=== PATIENT | female | born 1940 | race Caucasian/White ===

== ENCOUNTER 2016-12-30 12:00 | Outpatient (CLI) | payer MEDICARE, BC | END 2016-12-30 23:59 | disposition home health service (06) | LOC: WOU 12:00 | PROVIDERS: ATTEND Surgery | DX: T81.89XA Other complications of procedures, not elsewhere classified, initial encounter (principal); M86.661 Other chronic osteomyelitis, right tibia and fibula; S82.301S Unspecified fracture of lower end of right tibia, sequela; S82.831S Other fracture of upper and lower end of right fibula, sequela; X58.XXXS Exposure to other specified factors, sequela; L03.115 Cellulitis of right lower limb; R73.03 Prediabetes; I10 Essential (primary) hypertension | CPT/HCPCS: 11044; A6402; A6407 ==

== ENCOUNTER 2017-01-04 11:00 | Outpatient (CLI) | payer MEDICARE, BC | END 2017-01-04 23:59 | disposition home or self-care (01) | LOC: WOU 11:00 | PROVIDERS: ATTEND Surgery | DX: S81.801A Unspecified open wound, right lower leg, initial encounter (principal); B96.89 Other specified bacterial agents as the cause of diseases classified elsewhere; X58.XXXA Exposure to other specified factors, initial encounter; Y92.89 Other specified places as the place of occurrence of the external cause; I70.201 Unspecified atherosclerosis of native arteries of extremities, right leg; Z86.718 Personal history of other venous thrombosis and embolism | CPT/HCPCS: 93925-TC; 93971-TC ==

== ENCOUNTER 2017-01-05 13:30 | Outpatient (CLI) | payer MEDICARE, BC | END 2017-01-05 23:59 | disposition home health service (06) | LOC: WOU 13:30 | PROVIDERS: ATTEND Specialist | DX: T81.31XD Disruption of external operation (surgical) wound, not elsewhere classified, subsequent encounter (principal); L03.115 Cellulitis of right lower limb; I10 Essential (primary) hypertension; M86.371 Chronic multifocal osteomyelitis, right ankle and foot; S82.201S Unspecified fracture of shaft of right tibia, sequela; S92.401 Displaced unspecified fracture of right great toe; X58.XXXS Exposure to other specified factors, sequela; R73.03 Prediabetes; T81.89XD Other complications of procedures, not elsewhere classified, subsequent encounter; Z88.2 Allergy status to sulfonamides | CPT/HCPCS: A6402; A6407; G0463 ==

== ENCOUNTER 2017-01-06 13:29 | Outpatient (CLI) | payer MEDICARE, BC | END 2017-01-06 23:59 | disposition home health service (06) | LOC: WOU 13:29 | PROVIDERS: ATTEND Surgery | DX: M86.371 Chronic multifocal osteomyelitis, right ankle and foot (principal); S82.201S Unspecified fracture of shaft of right tibia, sequela; S82.401S Unspecified fracture of shaft of right fibula, sequela; X58.XXXS Exposure to other specified factors, sequela; I10 Essential (primary) hypertension; R73.03 Prediabetes; T81.89XD Other complications of procedures, not elsewhere classified, subsequent encounter; L03.115 Cellulitis of right lower limb | CPT/HCPCS: 11044; A6402 ==

== ENCOUNTER 2017-01-13 13:54 | Outpatient (CLI) | payer MEDICARE, BC | END 2017-01-13 23:59 | disposition home health service (06) | LOC: WOU 13:54 | PROVIDERS: ATTEND Surgery | DX: M86.361 Chronic multifocal osteomyelitis, right tibia and fibula (principal); S82.201S Unspecified fracture of shaft of right tibia, sequela; S82.401S Unspecified fracture of shaft of right fibula, sequela; X58.XXXS Exposure to other specified factors, sequela; I10 Essential (primary) hypertension; R73.03 Prediabetes; L03.115 Cellulitis of right lower limb; K51.90 Ulcerative colitis, unspecified, without complications | CPT/HCPCS: 11044; A6402 ==

== ENCOUNTER → 2017-01-20 | Outpatient (CLI) | payer MEDICARE, BC | END | disposition home health service (06) | LOC: WOU 14:44 | PROVIDERS: ATTEND Surgery | DX: M86.361 Chronic multifocal osteomyelitis, right tibia and fibula (principal); S82.201D Unspecified fracture of shaft of right tibia, subsequent encounter for closed fracture with routine healing; S82.401S Unspecified fracture of shaft of right fibula, sequela; X58.XXXS Exposure to other specified factors, sequela; I10 Essential (primary) hypertension; R73.03 Prediabetes; K51.90 Ulcerative colitis, unspecified, without complications; L03.115 Cellulitis of right lower limb; T81.89XA Other complications of procedures, not elsewhere classified, initial encounter | CPT/HCPCS: 11044; A6402 ==

== ENCOUNTER 2017-02-10 12:30 | Outpatient (CLI) | payer MEDICARE, BC | END 2017-02-10 23:59 | disposition home health service (06) | LOC: WOU 12:30 | PROVIDERS: ATTEND Surgery | DX: M86.361 Chronic multifocal osteomyelitis, right tibia and fibula (principal); T84.622D Infection and inflammatory reaction due to internal fixation device of right tibia, subsequent encounter; S82.401S Unspecified fracture of shaft of right fibula, sequela; S82.201S Unspecified fracture of shaft of right tibia, sequela; X58.XXXS Exposure to other specified factors, sequela; I10 Essential (primary) hypertension; R73.03 Prediabetes; L03.115 Cellulitis of right lower limb | CPT/HCPCS: 11044; A6402 ==

== ENCOUNTER 2017-02-17 12:30 | Outpatient (CLI) | payer MEDICARE, BC | END 2017-02-17 23:59 | disposition home health service (06) | LOC: WOU 12:30 | PROVIDERS: ATTEND Surgery | DX: M86.361 Chronic multifocal osteomyelitis, right tibia and fibula (principal); T84.622D Infection and inflammatory reaction due to internal fixation device of right tibia, subsequent encounter; S82.401S Unspecified fracture of shaft of right fibula, sequela; S82.201S Unspecified fracture of shaft of right tibia, sequela; X58.XXXS Exposure to other specified factors, sequela; I10 Essential (primary) hypertension; R73.03 Prediabetes; L03.115 Cellulitis of right lower limb; Z79.82 Long term (current) use of aspirin; Z79.899 Other long term (current) drug therapy | CPT/HCPCS: 11044; A6402 ==

== ENCOUNTER 2017-02-24 13:15 | Outpatient (CLI) | payer MEDICARE, BC | END 2017-02-24 23:59 | disposition home or self-care (01) | LOC: WOU 13:15 | PROVIDERS: ATTEND Surgery | DX: M86.361 Chronic multifocal osteomyelitis, right tibia and fibula (principal); T84.622D Infection and inflammatory reaction due to internal fixation device of right tibia, subsequent encounter; S82.401S Unspecified fracture of shaft of right fibula, sequela; S82.201S Unspecified fracture of shaft of right tibia, sequela; X58.XXXS Exposure to other specified factors, sequela; I10 Essential (primary) hypertension; R73.03 Prediabetes; Z79.82 Long term (current) use of aspirin; Z79.899 Other long term (current) drug therapy; I96 Gangrene, not elsewhere classified | CPT/HCPCS: 11043; A6402 ==

== ENCOUNTER 2017-03-16 15:05 | Outpatient (CLI) | payer MEDICARE, BC | END 2017-03-16 23:59 | disposition home or self-care (01) | LOC: WOU 15:05 | PROVIDERS: ATTEND Specialist | DX: M86.361 Chronic multifocal osteomyelitis, right tibia and fibula (principal); M79.7 Fibromyalgia; T84.622D Infection and inflammatory reaction due to internal fixation device of right tibia, subsequent encounter; S82.401S Unspecified fracture of shaft of right fibula, sequela; S82.201S Unspecified fracture of shaft of right tibia, sequela; X58.XXXS Exposure to other specified factors, sequela; Z79.82 Long term (current) use of aspirin; Z79.899 Other long term (current) drug therapy; L29.9 Pruritus, unspecified | CPT/HCPCS: 11042; 87070; 87075; A6402; A6407 ==

== ENCOUNTER 2017-03-23 12:30 | Outpatient (CLI) | payer MEDICARE, BC | END 2017-03-23 23:59 | disposition home health service (06) | LOC: WOU 12:30 | PROVIDERS: ATTEND Specialist | DX: M86.361 Chronic multifocal osteomyelitis, right tibia and fibula (principal); M79.7 Fibromyalgia; T84.622D Infection and inflammatory reaction due to internal fixation device of right tibia, subsequent encounter; S82.401S Unspecified fracture of shaft of right fibula, sequela; S82.201S Unspecified fracture of shaft of right tibia, sequela; X58.XXXS Exposure to other specified factors, sequela; Z79.82 Long term (current) use of aspirin; Z79.899 Other long term (current) drug therapy; L29.9 Pruritus, unspecified; I96 Gangrene, not elsewhere classified | CPT/HCPCS: 11042; A6402; A6407 ==

== ENCOUNTER 2017-04-06 12:12 | Outpatient (CLI) | payer MEDICARE, BC | END 2017-04-06 23:59 | disposition home or self-care (01) | LOC: WOU 12:12 | PROVIDERS: ATTEND Specialist | DX: M86.361 Chronic multifocal osteomyelitis, right tibia and fibula (principal); M79.7 Fibromyalgia; T84.622D Infection and inflammatory reaction due to internal fixation device of right tibia, subsequent encounter; S82.401S Unspecified fracture of shaft of right fibula, sequela; S82.201S Unspecified fracture of shaft of right tibia, sequela; X58.XXXS Exposure to other specified factors, sequela; Z79.82 Long term (current) use of aspirin; Z79.899 Other long term (current) drug therapy; L29.9 Pruritus, unspecified; I96 Gangrene, not elsewhere classified | CPT/HCPCS: 11042; 87070-TC; 87075-TC; A6402 ==

== ENCOUNTER 2017-04-13 14:02 | Outpatient (CLI) | payer MEDICARE, BC | END 2017-04-13 23:59 | disposition home health service (06) | LOC: WOU 14:02 | PROVIDERS: ATTEND Specialist | DX: M86.361 Chronic multifocal osteomyelitis, right tibia and fibula (principal); B95.62 Methicillin resistant Staphylococcus aureus infection as the cause of diseases classified elsewhere; M79.7 Fibromyalgia; T84.622D Infection and inflammatory reaction due to internal fixation device of right tibia, subsequent encounter; S82.401S Unspecified fracture of shaft of right fibula, sequela; S82.201S Unspecified fracture of shaft of right tibia, sequela; X58.XXXS Exposure to other specified factors, sequela; Z79.82 Long term (current) use of aspirin; Z79.899 Other long term (current) drug therapy | CPT/HCPCS: A6402; G0463 ==

== ENCOUNTER 2017-04-20 14:08 | Outpatient (CLI) | payer MEDICARE, BC | END 2017-04-20 23:59 | disposition home health service (06) | LOC: WOU 14:08 | PROVIDERS: ATTEND Specialist | DX: M86.361 Chronic multifocal osteomyelitis, right tibia and fibula (principal); S81.811D Laceration without foreign body, right lower leg, subsequent encounter; X58.XXXD Exposure to other specified factors, subsequent encounter; M79.7 Fibromyalgia | CPT/HCPCS: A6402; G0463 ==

== ENCOUNTER 2017-04-27 11:25 | Outpatient (CLI) | payer MEDICARE, BC | END 2017-04-27 23:59 | disposition home health service (06) | LOC: WOU 11:25 | PROVIDERS: ATTEND Specialist | DX: M86.361 Chronic multifocal osteomyelitis, right tibia and fibula (principal); M79.7 Fibromyalgia; S81.811D Laceration without foreign body, right lower leg, subsequent encounter; X58.XXXD Exposure to other specified factors, subsequent encounter; I10 Essential (primary) hypertension | CPT/HCPCS: 11044; 87070; 87075; 87077; 87186; A6402 ==

== ENCOUNTER 2017-05-04 13:14 | Outpatient (CLI) | payer MEDICARE, BC | END 2017-05-04 23:59 | disposition home health service (06) | LOC: WOU 13:14 | PROVIDERS: ATTEND Specialist | DX: M86.361 Chronic multifocal osteomyelitis, right tibia and fibula (principal); M79.7 Fibromyalgia; S81.811A Laceration without foreign body, right lower leg, initial encounter; X58.XXXA Exposure to other specified factors, initial encounter; Y92.89 Other specified places as the place of occurrence of the external cause; S82.202S Unspecified fracture of shaft of left tibia, sequela; X58.XXXS Exposure to other specified factors, sequela | CPT/HCPCS: 11042; A6402 ==

== ENCOUNTER 2017-05-11 11:20 | Outpatient (CLI) | payer MEDICARE, BC | END 2017-05-11 23:59 | disposition home health service (06) | LOC: WOU 11:20 | PROVIDERS: ATTEND Specialist | DX: M86.361 Chronic multifocal osteomyelitis, right tibia and fibula (principal); M79.7 Fibromyalgia; S81.811D Laceration without foreign body, right lower leg, subsequent encounter; X58.XXXD Exposure to other specified factors, subsequent encounter; S82.202S Unspecified fracture of shaft of left tibia, sequela; X58.XXXS Exposure to other specified factors, sequela; I10 Essential (primary) hypertension; R73.03 Prediabetes; Z88.2 Allergy status to sulfonamides | CPT/HCPCS: A6402; G0463 ==

== ENCOUNTER 2017-06-01 13:05 | Outpatient (CLI) | payer MEDICARE, BC | END 2017-06-01 23:59 | disposition home health service (06) | LOC: WOU 13:05 | PROVIDERS: ATTEND Specialist | DX: M86.361 Chronic multifocal osteomyelitis, right tibia and fibula (principal); S81.811A Laceration without foreign body, right lower leg, initial encounter; X58.XXXA Exposure to other specified factors, initial encounter; S82.202S Unspecified fracture of shaft of left tibia, sequela; X58.XXXS Exposure to other specified factors, sequela; I10 Essential (primary) hypertension; R73.03 Prediabetes; Z88.2 Allergy status to sulfonamides; Z98.890 Other specified postprocedural states | CPT/HCPCS: 11042; A6402 ==

== ENCOUNTER 2017-06-22 13:20 | Outpatient (CLI) | payer MEDICARE, BC | END 2017-06-22 23:59 | disposition home health service (06) | LOC: WOU 13:20 | PROVIDERS: ATTEND Specialist | DX: M86.361 Chronic multifocal osteomyelitis, right tibia and fibula (principal); M79.7 Fibromyalgia; I10 Essential (primary) hypertension; R73.03 Prediabetes; S81.811D Laceration without foreign body, right lower leg, subsequent encounter; X58.XXXD Exposure to other specified factors, subsequent encounter | CPT/HCPCS: 99214; A6402; G0463 ==

== ENCOUNTER 2017-07-06 13:08 | Outpatient (CLI) | payer MEDICARE, BC | END 2017-07-06 23:59 | disposition home health service (06) | LOC: WOU 13:08 | PROVIDERS: ATTEND Specialist | DX: M86.361 Chronic multifocal osteomyelitis, right tibia and fibula (principal); S81.811D Laceration without foreign body, right lower leg, subsequent encounter; X58.XXXD Exposure to other specified factors, subsequent encounter; M79.7 Fibromyalgia; K51.80 Other ulcerative colitis without complications; Z87.81 Personal history of (healed) traumatic fracture | CPT/HCPCS: 99213; A6402; G0463 ==

== ENCOUNTER 2017-07-20 13:30 | Outpatient (CLI) | payer MEDICARE, BC | END 2017-07-20 23:59 | disposition home health service (06) | LOC: WOU 13:30 | PROVIDERS: ATTEND Specialist | DX: M86.361 Chronic multifocal osteomyelitis, right tibia and fibula (principal); M79.7 Fibromyalgia; K51.80 Other ulcerative colitis without complications; L97.216 Non-pressure chronic ulcer of right calf with bone involvement without evidence of necrosis; S82.302S Unspecified fracture of lower end of left tibia, sequela; X58.XXXS Exposure to other specified factors, sequela; I10 Essential (primary) hypertension | CPT/HCPCS: 11042; A6402 ==

== ENCOUNTER 2017-08-10 13:50 | Outpatient (CLI) | payer OTHER, BC | END 2017-08-10 23:59 | disposition home health service (06) | LOC: WOU 13:50 | PROVIDERS: ATTEND Specialist | DX: L97.216 Non-pressure chronic ulcer of right calf with bone involvement without evidence of necrosis (principal); M86.361 Chronic multifocal osteomyelitis, right tibia and fibula; S82.302S Unspecified fracture of lower end of left tibia, sequela; X58.XXXS Exposure to other specified factors, sequela; K51.80 Other ulcerative colitis without complications; M79.7 Fibromyalgia | CPT/HCPCS: 11042; 87070-TC; 87075-TC; A6402 ==

== ENCOUNTER 2017-08-24 14:00 | Outpatient (CLI) | payer OTHER, BC | END 2017-08-24 23:59 | disposition home health service (06) | LOC: WOU 14:00 | PROVIDERS: ATTEND Specialist | DX: L97.216 Non-pressure chronic ulcer of right calf with bone involvement without evidence of necrosis (principal); M86.361 Chronic multifocal osteomyelitis, right tibia and fibula; M79.7 Fibromyalgia; K51.80 Other ulcerative colitis without complications | CPT/HCPCS: 11042; A6402 ==

== ENCOUNTER 2017-09-14 14:00 | Outpatient (CLI) | payer MEDICARE, BC | END 2017-09-14 23:59 | disposition home health service (06) | LOC: WOU 14:00 | PROVIDERS: ATTEND Specialist | DX: L97.216 Non-pressure chronic ulcer of right calf with bone involvement without evidence of necrosis (principal); M86.661 Other chronic osteomyelitis, right tibia and fibula; S82.891S Other fracture of right lower leg, sequela; X58.XXXS Exposure to other specified factors, sequela; K51.80 Other ulcerative colitis without complications; M79.7 Fibromyalgia | CPT/HCPCS: 11042; A6402 ==

== ENCOUNTER 2017-10-12 13:40 | Outpatient (CLI) | payer MEDICARE, BC | END 2017-10-12 23:59 | disposition home health service (06) | LOC: WOU 13:40 | PROVIDERS: ATTEND Specialist | DX: L97.216 Non-pressure chronic ulcer of right calf with bone involvement without evidence of necrosis (principal); K51.80 Other ulcerative colitis without complications; M79.7 Fibromyalgia; M86.361 Chronic multifocal osteomyelitis, right tibia and fibula; S82.891S Other fracture of right lower leg, sequela; X58.XXXS Exposure to other specified factors, sequela | CPT/HCPCS: A6402; G0463 ==

== ENCOUNTER 2017-11-09 13:30 | Outpatient (CLI) | payer MEDICARE, BC | END 2017-11-09 23:59 | disposition home or self-care (01) | LOC: WOU 13:30 | PROVIDERS: ATTEND Specialist | DX: L97.216 Non-pressure chronic ulcer of right calf with bone involvement without evidence of necrosis (principal); M79.7 Fibromyalgia; M86.361 Chronic multifocal osteomyelitis, right tibia and fibula; K51.80 Other ulcerative colitis without complications; T81.89XD Other complications of procedures, not elsewhere classified, subsequent encounter | CPT/HCPCS: A6402; G0463 ==

== ENCOUNTER 2018-01-04 14:00 | Outpatient (CLI) | payer MEDICARE, BC | END 2018-01-04 23:59 | disposition home health service (06) | LOC: WOU 14:00 | PROVIDERS: ATTEND Specialist | DX: L97.216 Non-pressure chronic ulcer of right calf with bone involvement without evidence of necrosis (principal); M86.361 Chronic multifocal osteomyelitis, right tibia and fibula; M79.7 Fibromyalgia; K51.80 Other ulcerative colitis without complications; I10 Essential (primary) hypertension | CPT/HCPCS: A6402; G0463 ==

== ENCOUNTER 2018-03-08 14:04 | Outpatient (CLI) | payer MEDICARE, BC | END 2018-03-08 23:59 | disposition home or self-care (01) | LOC: WOU 14:04 | PROVIDERS: ATTEND Specialist | DX: E11.69 Type 2 diabetes mellitus with other specified complication (principal); M86.361 Chronic multifocal osteomyelitis, right tibia and fibula; G93.2 Benign intracranial hypertension; I10 Essential (primary) hypertension | CPT/HCPCS: A6402; G0463; Z7610 ==

== ENCOUNTER 2018-05-10 13:30 | Outpatient (CLI) | payer MEDICARE, BC | END 2018-05-10 23:59 | disposition home health service (06) | LOC: WOU 13:30 | PROVIDERS: ATTEND Specialist | DX: M86.362 Chronic multifocal osteomyelitis, left tibia and fibula (principal); S82.892S Other fracture of left lower leg, sequela; X58.XXXS Exposure to other specified factors, sequela; I10 Essential (primary) hypertension | CPT/HCPCS: A6402; G0463; Z7610 ==

== ENCOUNTER 2018-05-31 13:42 | Outpatient (CLI) | payer MEDICARE, BC | END 2018-05-31 23:59 | disposition home health service (06) | LOC: WOU 13:42 | PROVIDERS: ATTEND Specialist | DX: M86.362 Chronic multifocal osteomyelitis, left tibia and fibula (principal); I10 Essential (primary) hypertension; M79.7 Fibromyalgia; S82.892S Other fracture of left lower leg, sequela; X58.XXXS Exposure to other specified factors, sequela | CPT/HCPCS: 87070; A6402; G0463; Z7610; 87186-TC ==

== ENCOUNTER 2018-06-14 14:08 | Outpatient (CLI) | payer MEDICARE, BC | END 2018-06-14 23:59 | disposition home health service (06) | LOC: WOU 14:08 | PROVIDERS: ATTEND Specialist | DX: M86.362 Chronic multifocal osteomyelitis, left tibia and fibula (principal) | CPT/HCPCS: A6402; G0463; Z7610 ==

== ENCOUNTER 2018-09-20 13:30 | Outpatient (CLI) | payer MEDICARE, BC | END 2018-09-20 23:59 | disposition home health service (06) | LOC: WOU 13:30 | PROVIDERS: ATTEND Specialist | DX: M86.362 Chronic multifocal osteomyelitis, left tibia and fibula (principal); G90.522 Complex regional pain syndrome I of left lower limb; S82.892S Other fracture of left lower leg, sequela; X58.XXXS Exposure to other specified factors, sequela; I10 Essential (primary) hypertension; R73.03 Prediabetes | CPT/HCPCS: A6402; G0463; Z7610 ==

== ENCOUNTER 2019-08-01 12:05 | Outpatient (CLI) | payer MEDICARE, BC | END 2019-08-01 23:59 | disposition home or self-care (01) | LOC: WOU 12:05 | PROVIDERS: ATTEND Specialist | DX: L97.816 Non-pressure chronic ulcer of other part of right lower leg with bone involvement without evidence of necrosis (principal); T81.32XS Disruption of internal operation (surgical) wound, not elsewhere classified, sequela; E11.69 Type 2 diabetes mellitus with other specified complication; M86.461 Chronic osteomyelitis with draining sinus, right tibia and fibula; I10 Essential (primary) hypertension; Z79.4 Long term (current) use of insulin; S82.201P Unspecified fracture of shaft of right tibia, subsequent encounter for closed fracture with malunion; X58.XXXD Exposure to other specified factors, subsequent encounter | CPT/HCPCS: 11042 ==